=== PATIENT | male | born 1975 | race African-American/Black ===

== ENCOUNTER 2019-07-11 06:49 | Observation (INO) ==
[2019-07-11] MEDS ORDERED: ASPIRIN 325 MG TABLET PO STA (07:22)
[2019-07-11] MEDS ORDERED: hydrALAZINE 20 MG/1 ML VIAL IV STA (07:23)
[2019-07-11 08:19] LABS: Basophils % 0.4 % (0.0-0.8); Eosinophils % 0.2 % (0.00-10.9); Hematocrit 42.5 VOL% (42.0-52.0); Immature Granulocytes % 0.2 %; Immature Granulocytes Absolute 0.02 #; Lymphocytes # 2.9 10*3/uL (1.4-4.0); Lymphocytes % 34.8 % (21.2-54.2); Mean Corpuscular HGB Conc 30.6 GM/DL (32-36); Mean Corpuscular Volume 75.1 FL (87-102); Mean Platelet Volume 10.8 FL (9.6-12.0); Monocytes % 9.6 % (1.7-12.7); Neutrophils % 54.8 % (38.7-73.9); Platelet Count 430 T/CUMM (130-400); Red Blood Count 5.66 MC/CUMM (3.8-5.5); Red Cell Distribution Width 14.2 % (9.3-17.3); White Blood Count 8.2 T/CUMM (4-12)
[2019-07-11 08:40] LABS: Alanine Aminotransferase 56 U/L (16-61); Albumin 3.3 G/DL (3.4-5.0); Alkaline Phosphatase 79 U/L (45-117); Aspartate Amino Transferase 40 U/L (0-37); Bilirubin,Total < 0.39 MG/DL (0.2-1.0); Blood Urea Nitrogen 11 MG/DL (7-18); Calcium 8.5 MG/DL (8.5-10.1); Estimated Glom Filtration Rate 111 ML/MIN; Glucose 105 MG/DL (74-106); Osmolality,Calculated 271.8 MOS/KG (273-304); Total Protein 7.1 G/DL (6.4-8.3)
[2019-07-11 09:00] LABS: Apearance,Urine CLEAR (Clear); Bilirubin,Urine Negative (Negative); Blood, Urine Negative (Negative); Glucose,Urine (UA) Negative (Negative); Ketones,Urine Negative (Negative); Mucus,Urine Occasional /LPF (Occasional); Nitrite,Urine Negative (Negative); Protein,Urine Negative; RBC,Urine 3 /HPF (0-4); Squamous Epithelial Cell,Urine Occasional /HPF (0-10); Urine Color Yellow (Yellow); Urine Specific Gravity 1.019 (1.001-1.035); Urine Urobilinogen < 2.0 EU/DL (0.2-1.0); WBC,Urine <1 /HPF (0-6)
[2019-07-11] MEDS ORDERED: FUROSEMIDE 40 MG/4 ML VIAL IV STA (09:09)
[2019-07-11] MEDS ORDERED: MAGNESIUM SULF RIDER 4 GM in PREMIX 1 EACH IV PRN (09:24)
[2019-07-11] MEDS ORDERED: MAGNESIUM SULF RIDER 2 GM in PREMIX 1 EACH IV PRN (09:24)
[2019-07-11] MEDS ORDERED: amLODIPine 5 MG TABLET PO STA (09:25)
[2019-07-11] MEDS ORDERED: guaiFENesin/DM ER 600-30 MG TABLET PO PRN (09:32)
[2019-07-11] MEDS ORDERED: NICOTINE 21 MG/24 HR PATCH TRANSDERM PRN (09:32)
[2019-07-11] MEDS ORDERED: traZODone 50 MG TABLET PO PRN (09:32)
[2019-07-11] MEDS ORDERED: diphenhydrAMINE CAP 25 MG CAPSULE PO PRN (09:32)
[2019-07-11] MEDS ORDERED: ACETAMINOPHEN 325 MG TABLET PO PRN (09:32)
[2019-07-11] MEDS ORDERED: ONDANSETRON 4 MG/2 ML VIAL IV PRN (09:32)
[2019-07-11] MEDS ORDERED: ZALEPLON 5 MG CAPSULE PO PRN (09:32)
[2019-07-11 10:29] LABS: Barbiturates Screen,Urine Negative (Negative); Benzodiazepines Screen,Urine Negative (Negative); Cannabinoid Screen,Urine Positive (Negative); Opiate Screen,Urine Negative (Negative); Phencyclidine Screen,Urine Negative (Negative)
[2019-07-11 10:30] LABS: Risk Ratio 2.56; VLDL CHOLESTEROL 27.8 MG/DL
[2019-07-11] MEDS ORDERED: carvediloL 3.125 MG TABLET PO STA (10:31)
[2019-07-11] MEDS ORDERED: DEXTROSE 50% 25 GM/50 ML VIAL IV PRN ×2 (10:38)
[2019-07-11] MEDS ORDERED: GLUCAGON 1 MG VIAL IM PRN (10:38)
[2019-07-11] MEDS: cefTRIAXone 1,000 MG in SYRINGE 1 EACH IV SCH (13:27)
[2019-07-11] MEDS: ENOXAPARIN 40 MG/0.4 ML SYRINGE SUBCUT SCH (13:27)
[2019-07-11] MEDS: ALBUTEROL/IPRATROPIUM 3 ML NEB RESP TX SCH ×2 (13:35→20:10)
[2019-07-11] MEDS: BENZONATATE 100 MG CAPSULE PO SCH ×2 (16:11→21:28)
[2019-07-11] MEDS: FUROSEMIDE 40 MG/4 ML VIAL IV SCH (16:12)
[2019-07-11] MEDS ORDERED: ROSUVASTATIN 10 MG TABLET PO SCH (21:00)
[2019-07-11] MEDS: NORTRIPTYLINE 25 MG CAPSULE PO SCH (21:28)
[2019-07-11] MEDS: amLODIPine 10 MG TABLET PO SCH (21:29)
[2019-07-11] MEDS: DOCUSATE SODIUM 100 MG CAPSULE PO SCH (21:29)
[2019-07-11] MEDS: carvediloL 6.25 MG TABLET PO SCH (21:29)
[2019-07-11] MEDS: ROSUVASTATIN 20 MG TABLET PO SCH (21:29)
[2019-07-12] MEDS: ALBUTEROL/IPRATROPIUM 3 ML NEB RESP TX SCH ×4 (00:20→20:23)
[2019-07-12] MEDS: ENOXAPARIN 40 MG/0.4 ML SYRINGE SUBCUT SCH ×3 (02:13→22:13)
[2019-07-12 04:05] LABS: Basophils % 0.5 % (0.0-0.8); Eosinophils % 0.3 % (0.00-10.9); Hematocrit 43.9 VOL% (42.0-52.0); Hemoglobin 13.4 GM/DL (14.0-18.0); Immature Granulocytes % 0.2 %; Immature Granulocytes Absolute 0.02 #; Lymphocytes # 2.6 10*3/uL (1.4-4.0); Mean Corpuscular HGB Conc 30.5 GM/DL (32-36); Mean Corpuscular Volume 74.3 FL (87-102); Monocytes % 11.9 % (1.7-12.7); Neutrophils % 57.1 % (38.7-73.9); Platelet Count 476 T/CUMM (130-400); Red Blood Count 5.91 MC/CUMM (3.8-5.5); Red Cell Distribution Width 14.4 % (9.3-17.3); White Blood Count 8.6 T/CUMM (4-12)
[2019-07-12 04:24] LABS: Alanine Aminotransferase 46 U/L (16-61); Albumin 3.2 G/DL (3.4-5.0); Alkaline Phosphatase 81 U/L (45-117); Aspartate Amino Transferase 22 U/L (0-37); Bilirubin,Total < 0.39 MG/DL (0.2-1.0); Blood Urea Nitrogen 23 MG/DL (7-18); Calcium 8.4 MG/DL (8.5-10.1); Estimated Glom Filtration Rate 89 ML/MIN; Glucose 103 MG/DL (74-106)
[2019-07-12] MEDS ORDERED: hydroCHLOROthiazide 25 MG TABLET PO SCH (09:00)
[2019-07-12] MEDS ORDERED: amLODIPine 5 MG TABLET PO SCH (09:00)
[2019-07-12] MEDS: cefTRIAXone 1,000 MG in SYRINGE 1 EACH IV SCH (09:43)
[2019-07-12] MEDS: FUROSEMIDE 40 MG/4 ML VIAL IV SCH ×2 (09:43→16:30)
[2019-07-12] MEDS: COENZYME Q10 100 MG CAPSULE PO SCH (09:44)
[2019-07-12] MEDS: DOCUSATE SODIUM 100 MG CAPSULE PO SCH ×2 (09:45→21:24)
[2019-07-12] MEDS: BENZONATATE 100 MG CAPSULE PO SCH ×3 (09:45→21:22)
[2019-07-12] MEDS: ASPIRIN CHEW 81 MG TABLET PO SCH (09:45)
[2019-07-12] MEDS: carvediloL 6.25 MG TABLET PO SCH ×2 (09:45→21:24)
[2019-07-12] MEDS: PANTOPRAZOLE 40 MG TABLET PO SCH (09:46)
[2019-07-12] MEDS ORDERED: MAGNESIUM SULF RIDER 2 GM in PREMIX 1 EACH IV PRN (12:11)
[2019-07-12] MEDS ORDERED: POTASSIUM CHLORIDE RIDER 10 MEQ in PREMIX 1 EACH IV PRN (12:11)
[2019-07-12] MEDS: ROSUVASTATIN 20 MG TABLET PO SCH (21:21)
[2019-07-12] MEDS: amLODIPine 10 MG TABLET PO SCH (21:23)
[2019-07-12] MEDS: NORTRIPTYLINE 25 MG CAPSULE PO SCH (21:25)
[2019-07-13] MEDS: ALBUTEROL/IPRATROPIUM 3 ML NEB RESP TX SCH ×3 (00:36→14:33)
[2019-07-13 05:52] LABS: Basophils % 0.4 % (0.0-0.8); Hemoglobin 14.8 GM/DL (14.0-18.0); Immature Granulocytes % 0.2 %; Immature Granulocytes Absolute 0.02 #; Lymphocytes # 1.4 10*3/uL (1.4-4.0); Lymphocytes % 16.5 % (21.2-54.2); Mean Corpuscular HGB Conc 30.8 GM/DL (32-36); Mean Corpuscular Volume 73.4 FL (87-102); Monocytes % 13.7 % (1.7-12.7); Neutrophils % 69.2 % (38.7-73.9); Platelet Count 471 T/CUMM (130-400); Red Blood Count 6.54 MC/CUMM (3.8-5.5); Red Cell Distribution Width 14.7 % (9.3-17.3); White Blood Count 8.2 T/CUMM (4-12)
[2019-07-13 06:25] LABS: Albumin 3.5 G/DL (3.4-5.0); Bilirubin,Total 0.5 MG/DL (0.2-1.0); Calcium 8.7 MG/DL (8.5-10.1); Osmolality,Calculated 272.2 MOS/KG (273-304); Total Protein 7.7 G/DL (6.4-8.3)
[2019-07-13] MEDS ORDERED: diphenhydrAMINE CAP 25 MG CAPSULE PO ONE (08:00)
[2019-07-13] MEDS ORDERED: DIAZEPAM 5 MG TABLET PO ONE (08:00)
[2019-07-13] MEDS ORDERED: ASPIRIN 325 MG TABLET PO ONE (08:00)
[2019-07-13] MEDS ORDERED: LOSARTAN 50 MG TABLET PO SCH (09:00)
[2019-07-13] MEDS ORDERED: POTASSIUM CHLORIDE 20 MEQ TABLET PO SCH (09:00)
[2019-07-13] MEDS: BENZONATATE 100 MG CAPSULE PO SCH ×2 (09:49→17:15)
[2019-07-13] MEDS: DOCUSATE SODIUM 100 MG CAPSULE PO SCH (09:49)
[2019-07-13] MEDS: COENZYME Q10 100 MG CAPSULE PO SCH (09:49)
[2019-07-13] MEDS: PANTOPRAZOLE 40 MG TABLET PO SCH (09:49)
[2019-07-13] MEDS: carvediloL 6.25 MG TABLET PO SCH (09:50)
[2019-07-13] MEDS: ASPIRIN CHEW 81 MG TABLET PO SCH (09:50)
[2019-07-13] MEDS: cefTRIAXone 1,000 MG in SYRINGE 1 EACH IV SCH (09:50)
[2019-07-13] MEDS: FUROSEMIDE 40 MG/4 ML VIAL IV SCH (09:55)
[2019-07-13] MEDS ORDERED: SODIUM CHLORIDE 0.45% 1,000 ML IV SCH (10:00)
[2019-07-13] MEDS ORDERED: LIDOCAINE 1% 20 ML VIAL ONE (11:33)
[2019-07-13] MEDS ORDERED: HEPARIN/NACL 0.9% 2 UNITS/ML 1,000 ML IV ONE (11:33)
[2019-07-13] MEDS ORDERED: NITROGLYCERIN DRIP 50 MG/250 ML BOTTLE IV ONE (11:33)
[2019-07-13] MEDS ORDERED: VERAPAMIL 5 MG/2 ML VIAL ONE (11:33)
[2019-07-13] MEDS ORDERED: MIDAZOLAM 2 MG/2 ML VIAL ONE (12:12)
[2019-07-13] MEDS ORDERED: HYDROmorphone 2 MG/1 ML VIAL ONE (12:12)
[2019-07-13] MEDS ORDERED: ENOXAPARIN 30 MG/0.3 ML SYRINGE ONE (12:21)
[2019-07-13] MEDS: ENOXAPARIN 40 MG/0.4 ML SYRINGE SUBCUT SCH (17:14)
[2019-07-13 17:53] VITALS: BP 117/75
[2019-07-14] MEDS ORDERED: AZITHROMYCIN 250 MG TABLET PO SCH (09:30)
== END 2019-07-13 18:30 | disposition home or self-care (01) ==
LOC: N.ED 06:49 → N.EDINP 06:49 → SUATTDRO 09:32 → N.2W 10:33
PROVIDERS: ADMIT Hospitalist; ATTEND Internal Medicine
PROC: CLCCHCL (ICD-10-PCS; 2019-07-13 12:45)

== ENCOUNTER 2022-07-24 18:20 | Observation (INO) ==
[2022-07-24] MEDS ORDERED: NITROGLYCERIN 2% OINT 1 INCH/GM PACK TOP STA (19:31)
[2022-07-24] MEDS ORDERED: ONDANSETRON 4 MG/2 ML VIAL IV STA (19:31)
[2022-07-24] MEDS ORDERED: ALBUTEROL/IPRATROPIUM 3 ML NEB RESP TX STA (19:31)
[2022-07-24] MEDS ORDERED: ASPIRIN 325 MG TABLET PO STA (19:31)
[2022-07-24] MEDS ORDERED: methylPREDNISolone SOD SUC 125 MG/2 ML VIAL IV STA (19:31)
[2022-07-24] MEDS ORDERED: FUROSEMIDE 100 MG/10 ML VIAL IV STA (19:31)
[2022-07-24] MEDS ORDERED: MORPHINE 2 MG/1 ML SYRINGE IV STA (19:31)
[2022-07-24] MEDS ORDERED: ALBUTEROL 2.5 MG/3 ML NEB RESP TX ONE (19:41)
[2022-07-24 19:45] LABS: Basophils % 0.2 % (0.0-0.8); Eosinophils % 0.1 % (0.00-10.9); Hematocrit 38.3 VOL% (42.0-52.0); Hemoglobin 11.7 GM/DL (14.0-18.0); Immature Granulocytes % 0.5 %; Immature Granulocytes Absolute 0.07 #; Lymphocytes % 7.4 % (21.2-54.2); Mean Corpuscular HGB Conc 30.5 GM/DL (32-36); Mean Corpuscular Volume 73.1 FL (87-102); Mean Platelet Volume 10.9 FL (9.6-12.0); Monocytes # 1.4 10*3/uL (0.11-0.8); Monocytes % 10.1 % (1.7-12.7); Neutrophils % 81.7 % (38.7-73.9); Platelet Count 358 T/CUMM (130-400); Red Blood Count 5.24 MC/CUMM (3.8-5.5); Red Cell Distribution Width 13.7 % (9.3-17.3); White Blood Count 13.43 T/CUMM (4-12)
[2022-07-24 19:53] LABS: Albumin 3.1 G/DL (3.4-5.0); Bilirubin,Total 0.6 MG/DL (0.20-1.00); Calcium 8.8 MG/DL (8.5-10.1); Osmolality,Calculated 273.8 MOS/KG (273-304); Potassium 3.7 MMOL/L (3.5-5.1); Total Protein 6.4 G/DL (6.4-8.2)
[2022-07-24] MEDS ORDERED: ALBUTEROL NEB SOLN 5 MG/ML 20 ML/BOTTLE CONT NEB SCH (20:00)
[2022-07-24] MEDS ORDERED: MORPHINE 2 MG/1 ML SYRINGE IV PRN (20:39)
[2022-07-24] MEDS ORDERED: ONDANSETRON 4 MG/2 ML VIAL IV PRN (20:39)
[2022-07-24] MEDS ORDERED: ACETAMINOPHEN 325 MG TABLET PO PRN (20:39)
[2022-07-24] MEDS ORDERED: ENOXAPARIN 40 MG/0.4 ML SYRINGE SUBCUT SCH (21:00)
[2022-07-24] MEDS ORDERED: cefTRIAXone 2,000 MG in SODIUM CHLORIDE 0.9% 100 ML IV SCH (21:00)
[2022-07-24 21:10] LABS: Arterial Base Excess iSTAT 0 MMOL/L (-2.5-2.5); Arterial Bicarbonate iSTAT 23.7 MMOL/L (20-26); Arterial O2 Saturation iSTAT 89 % (95-100); Arterial PCO2 iSTAT 34 MM HG (35-48); Arterial PO2 iSTAT 53 MM HG (80-95); Arterial Total CO2 iSTAT 25 MMO/L (23-27); Arterial pH iSTAT 7.451 (7.35-7.45)
[2022-07-24 21:22] LABS: Barbiturates Screen,Urine Negative (Negative); Benzodiazepines Screen,Urine Negative (Negative); Cannabinoid Screen,Urine Positive (Negative); Opiate Screen,Urine Positive (Negative); Phencyclidine Screen,Urine Negative (Negative)
[2022-07-25] MEDS: ALBUTEROL/IPRATROPIUM 3 ML NEB RESP TX SCH ×2 (01:03→07:35)
[2022-07-25 07:11] LABS: Basophils % 0.1 % (0.0-0.8); Hematocrit 37.9 VOL% (42.0-52.0); Hemoglobin 11.6 GM/DL (14.0-18.0); Immature Granulocytes % 0.5 %; Immature Granulocytes Absolute 0.07 #; Lymphocytes # 0.6 10*3/uL (1.4-4.0); Lymphocytes % 4.7 % (21.2-54.2); Mean Corpuscular HGB Conc 30.6 GM/DL (32-36); Mean Corpuscular Volume 73.6 FL (87-102); Mean Platelet Volume 11.4 FL (9.6-12.0); Monocytes # 0.3 10*3/uL (0.11-0.8); Monocytes % 2.5 % (1.7-12.7); Neutrophils % 92.2 % (38.7-73.9); Platelet Count 362 T/CUMM (130-400); Red Blood Count 5.15 MC/CUMM (3.8-5.5); White Blood Count 13.49 T/CUMM (4-12)
[2022-07-25 07:23] LABS: Alanine Aminotransferase 29 U/L (16-61); Albumin 2.9 G/DL (3.4-5.0); Alkaline Phosphatase 98 U/L (45-117); Aspartate Amino Transferase 29 U/L (0-37); Bilirubin,Total < 0.39 MG/DL (0.20-1.00); Blood Urea Nitrogen 14 MG/DL (7-18); Carbon Dioxide 22 MMOL/L (21-32); Chloride 102 MMOL/L (98-107); Glucose 202 MG/DL (74-106); Osmolality,Calculated 276.1 MOS/KG (273-304); Potassium 3.6 MMOL/L (3.5-5.1); Sodium 135 MMOL/L (136-145); Total Protein 7.1 G/DL (6.4-8.2)
[2022-07-25 07:34] LABS: Hypochromia 1+; Lymphocytes 3 % (20-55); Microcytosis 1+; Ovalocytes Slight; Total Cells Counted 100
[2022-07-25 07:35] LABS: Platelet Estimate Normal
[2022-07-25] MEDS ORDERED: predniSONE 20 MG TABLET PO SCH (09:00)
[2022-07-25] MEDS ORDERED: BUDESONIDE/FORMOTEROL 160-4.5 INHALER 6 GM INH SCH (09:00)
[2022-07-25] MEDS ORDERED: PANTOPRAZOLE 40 MG TABLET PO SCH (09:00)
[2022-07-25 12:43] VITALS: BP 153/95
== END 2022-07-25 15:04 | disposition home or self-care (01) ==
LOC: N.EDINP 18:20 → N.ED 18:20 → SUATTDRO 20:39 → N.TELEN 07-25 03:19
PROVIDERS: ADMIT Internal Medicine; ATTEND Internal Medicine